=== PATIENT | female | born 1980 | race Caucasian/White ===

== ENCOUNTER → 2024-05-06 08:17 | Outpatient (REF) | payer BC, SELFPAY | LOC: WDC 08:17 | PROVIDERS: ATTENDING PHYSICIAN Obstetrics & Gynecology | DX: Z12.31 Encounter for screening mammogram for malignant neoplasm of breast (principal) | CPT/HCPCS: 77063; 77067 ==

== ENCOUNTER → 2025-06-26 08:20 | Outpatient (REF) | payer BC, SELFPAY | LOC: HWRAD 08:20 | PROVIDERS: ATTENDING PHYSICIAN Obstetrics & Gynecology; FAMILY PHYSICIAN Physician Assistant Medical | DX: R10.32 Left lower quadrant pain (principal) | CPT/HCPCS: 76830; 76856 ==